=== PATIENT | male | born 1945 | race Caucasian/White ===

== ENCOUNTER 2018-04-24 14:58 | Emergency (ER) | payer MEDICARE ==
--- NOTE | 2018-04-24 15:19 | Emergency Department Record ---
History of Present Illness - General Chief Complaint: Abdominal Pain Stated Complaint: abdominal pain Time Seen by Provider: 04/24/18 15:13 Source: Patient, Family () Mode of Arrival: Ambulatory Limitations: No limitations - History of Present Illness Initial Comments: Pt with hernia to abdomen for "years". "I need to get this taken care of". No fever, nausea, vomiting. Recent soft stool. Pt was not sure where to go to get evaluated for repair. No other complaints. Appetite is good. -: Year(s) Location: Other Radiation: None Severity scale (1-10): 5 Quality: Aching Consistency: Constant Improves With: Nothing Worsens With: Nothing Associated Symptoms: Denies other symptoms - Related Data Home Medications Medication Instructions Recorded Confirmed Last Taken Albuterol Sulfate [Ventolin Hfa] 1 puff IH ASDIR 04/24/18 04/24/18 Unknown Atorvastatin Calcium 10 mg PO DAILY 04/24/18 04/24/18 Unknown Diltiazem HCl [Diltiazem 24Hr ER] 240 mg PO DAILY 04/24/18 04/24/18 Unknown Enalapril Maleate 5 mg PO DAILY 04/24/18 04/24/18 Unknown Fluticasone/Salmeterol [Advair 1 puff IH DAILY 04/24/18 04/24/18 Unknown 250-50 Diskus] Hydrochlorothiazide [Hctz] 25 mg PO DAILY 04/24/18 04/24/18 Unknown Metformin HCl 500 mg PO BID 04/24/18 04/24/18 Unknown NPH, Human Insulin N [Novolin N] 34 unit SQ BID 04/24/18 04/24/18 Unknown Umeclidinium [place] [Incruse 1 puff IH DAILY 04/24/18 04/24/18 Unknown Ellipta] Allergies Allergy/AdvReac Type Severity Reaction Status Date / Time No Known Drug Intolerances Allergy Unknown PT UNSURE Verified 04/24/18 15:08 OF REACTION Travel Screening - Travel/Exposure Within Last 30 Days Have you traveled within the last 30 days?: No - Travel/Exposure Within Last Year Have you traveled outside the [place] in the last year?: No Review of Systems Constitutional: Denies: Fever, Weakness, Weight change Eyes: Denies: Photophobia ENT: Denies: Congestion Respiratory: Denies: Cough Cardiovascular: Denies: Chest pain Endocrine: Denies: Fatigue Gastrointestinal: Reports: As per HPI Genitourinary: Denies: Dysuria Musculoskeletal: Denies: Arthralgia, Back pain Skin: Denies: Rash Neurological: Denies: Seizure Psychiatric: Denies: Anxiety Past Medical History - SOCIAL HISTORY Smoking Status: Former smoker Alcohol Use: None Drug Use: None - RESPIRATORY Hx Respiratory Disorders: Yes Hx COPD: Yes - CARDIOVASCULAR Hx Cardio Disorders: Yes Hx Hypertension: Yes - NEURO Hx Neuro Disorders: No - GI Hx GI Disorders: No - Hx Genitourinary Disorders: No - ENDOCRINE Hx Endocrine Disorders: Yes Hx Diabetes: Yes (2) - MUSCULOSKELETAL Hx Musculoskeletal Disorders: No - PSYCH Hx Psych Problems: No - HEMATOLOGY/ONCOLOGY Hx Hematology/Oncology Disorders: No Family Medical History Any Significant Family History?: No Physical Exam - General General Appearance: Alert, Oriented x3, Cooperative, No acute distress - Head Head exam: Atraumatic - Eye Eye exam: Normal appearance - ENT ENT exam: Normal exam, Mucous membranes moist, Normal external ear exam, Normal orophraynx - Neck Neck exam: Normal inspection - Respiratory Respiratory exam: Normal lung sounds bilaterally. negative: Rhonchi, Wheezes - Cardiovascular Cardiovascular Exam: Regular rate, Normal rhythm, Normal heart sounds - GI/Abdominal GI/Abdominal exam: Soft, Normal bowel sounds, Hernia (large soft umbilical hernis reduces easily when supine. ). negative: Guarding, Tenderness - Extremities Extremities exam: Normal inspection - Back Back exam: Reports: Normal inspection - Neurological Neurological exam: Alert, Normal gait, Oriented X3 - Psychiatric Psychiatric exam: Normal affect, Normal mood Course Vital Signs 04/24/18 15:02 Temperature 97.9 F Pulse Rate 111 H Respiratory 24 Rate Blood Pressure 175/69 Pulse Ox 95 - Reevaluation(s) Reevaluation #1: 04/24/18 15:24 Discussed situation with patinet and . Referral to Dr. Vance and appointment arranged. Discussed reasons to return to ED emergently. Pt and understand and agree. Disposition Disposition: Discharge Clinical Impression: Umbilical hernia Disposition: Home, Self-Care Condition: (2) Stable Instructions: Abdominal Pain (ED) Additional Instructions: Follow up with Dr. Vance for evaluation. Return immediately if increased abdominal pain, nausea, vomiting, or other concerns Referrals: [facility] [Provider Group] Lakhwinder Vance [DOCTOR OF OSTEOPATH] - Forms: Patient Portal Access Quality - Quality Measures Quality Measures: N/A - Blood Pressure Screening Does Patient Have Any of the Following: No Blood Pressure Classification: Hypertensive Reading Systolic Measurement: 175 Diastolic Measurement: 69 Screening for High Blood Pressure: < First Hypertensive BP, F/U Documented > [ [id number]] First Hypertensive Follow-up Interventions: Follow-up with rescreen GT 1 day and LT 4 weeks.
== END 2018-04-24 15:35 | disposition home or self-care (01) ==
LOC: ER 14:58
DX: K42.9 Umbilical hernia without obstruction or gangrene (principal); I10 Essential (primary) hypertension; J44.9 Chronic obstructive pulmonary disease, unspecified; Z87.891 Personal history of nicotine dependence
CPT/HCPCS: 99283